=== PATIENT | female | born 1990 ===

== ENCOUNTER 2021-04-27 11:42 | Emergency (ER) | payer OTHER ==
[~2021-04-27] VITALS: Ht 167.6 cm; Wt 64.9 kg
[2021-04-27] MEDS ORDERED: HYDROmorphone HCL 2 MG/ML VL IV ONE ×2 (12:45→14:45)
[2021-04-27] MEDS ORDERED: SODIUM CHLORIDE 0.9% 500 ML IV ONE (12:45)
[2021-04-27] MEDS ORDERED: PROMETHAZINE HCL 25 MG/ML 1ML IV ONE (12:45)
[2021-04-27] MEDS ORDERED: SODIUM CHLORIDE 0.9% 1,000 ML IV ONE (12:45)
[2021-04-27 15:31] VITALS: BP 123/69
== END 2021-04-27 16:00 | disposition home or self-care (01) ==
LOC: EDBD 11:42 → ER 11:42
DX: S39.012A Strain of muscle, fascia and tendon of lower back, initial encounter (principal); S70.02XA Contusion of left hip, initial encounter; Z98.51 Tubal ligation status; V00.131A Fall from skateboard, initial encounter; Y93.89 Activity, other specified; Y92.89 Other specified places as the place of occurrence of the external cause; Y99.8 Other external cause status
CPT/HCPCS: 71045; 72131; 73552; 73562; 96361; 96374; 96375; 96376; 99285; J1170; J2550; J7030; J7040